=== PATIENT | female | born 1950 | race Caucasian/White ===

== ENCOUNTER 2016-12-08 14:21 | Emergency (ER) ==
[2016-12-08 14:27] VITALS: BP 136/80; TEMP 98.8; BMI 31.6
[2016-12-08] MEDS ORDERED: DUONEB NEB STA (14:30)
[2016-12-08] MEDS ORDERED: DECADRON 4 MG/ML SDV IM STA (14:32)
[2016-12-08] MEDS ORDERED: XOPENEX 1.25 MG NEB STA (14:32)
--- NOTE | 2016-12-08 15:03 | DI ---
EXAM: PA and lateral views of the chest HISTORY: Wheezing COMPARISON: Chest x-ray 08/22/2012 FINDINGS: The cardiomediastinal silhouette is normal. There is no pneumothorax or pleural effusion . There is no consolidation, nodule or mass. 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 IMPRESSION: No acute cardiopulmonary process or consolidation.
--- NOTE | 2016-12-08 15:04 | ED.PDOC ---
General ED Provider: Dr. EVANGELINA SHIN-ER Chief Complaint: Cough Stated Complaint: noted cough and wheezing --has been out of her symbicort for amonth Time Seen by Physician: 14:25 Mode of Arrival: Walk-In Information Source: Patient Exam Limitations: No limitations Primary Care Provider: EVANGELINA SHIN Nursing and Triage Documentation Reviewed and Agree: Yes Respiratory Complaint Exam - Respiratory Complaint/Exam Onset/Duration: 2 ays Symptoms Are: Still present Timing: Intermittent Initial Severity: Mild Current Severity: Moderate Location: Chest Character: Reports: Non-productive cough, Dry cough, Bronchospastic cough Aggravating: Reports: URI Alleviating: Reports: Bronchodilators Associated Signs and Symptoms: Reports: Dyspnea, Wheezing, URI. Denies: Rapid breathing, Fever, Chills, Chest pain, Pleuritic chest pain, Hemoptysis, Dizziness, Calf pain, Calf swelling, Edema, Nasal congestion, Hoarseness, Sinus discomfort, Vomiting, Sore throat, Weight loss, Decreased oral intake, Increased thirst, Increased appetite, Increased urination Related History: Reports: Similar episode History of Healthcare-Acquired Pneumonia: No Related Surgical History: Reports: None Pulmonary Embolism Risk Factors: None Cardiac Risk Factors: Reports: Hypertension Pseudomonas Risk Factors: Reports: Chronic Lung Disease Tuberculosis Risk Factors: Reports: None Status Asthmaticus Risk Factors: Reports: None Home Oxygen Use: No Recent Stress Test: No Recent Echo/LV Function: No Current Antibiotic Use: No Current Asthma Medication Use: No Respiratory Distress: Mild Inadequate Respiratory Effort: No Dysphagia Present: No Stridor Present: No JVD Present: No Accessory Muscle Use: No Retractions: Not Present Diminished Breath Sounds: No Prolonged Respiration: Expiratory phase Sinus Tenderness: None Grunting Respirations: No Kussmaul Respirations: No Differential Diagnoses: Asthma, Bronchitis Review of Systems - Review Of Systems Constitutional: Reports: No symptoms Eyes: Reports: No symptoms Ears, Nose, Mouth, Throat: Reports: No symptoms Respiratory: Reports: Cough, Short of air, Wheezing Cardiac: Reports: No symptoms GI: Reports: No symptoms : Reports: No symptoms Musculoskeletal: Reports: No symptoms Skin: Reports: No symptoms Neurological: Reports: No symptoms Endocrine: Reports: No symptoms Hematologic/Lymphatic: Reports: No symptoms All Other Systems: Reviewed and Negative Past Medical History - Past Medical History Endocrine: Reports: Unknown Cardiovascular: Reports: Unknown Respiratory: Reports: Unknown Hematological: Reports: Unknown Gastrointestinal: Reports: Unknown Genitourinary: Reports: Unknown Neuro/Psych: Reports: Unknown Musculoskeletal: Reports: Unknown Cancer: Reports: Unknown Last Menstrual Period: none - Surgical History General Surgical History: Reports: Unknown - Family History Family History: Reports: Unknown - Social History Smoking Status: Former smoker Hx Substance Use: No Alcohol Screening: None Lives: With family Physical Exam - Physical Exam Appearance: Well-appearing, No pain distress, Well-nourished Eyes: LULU, EOMI, Conjunctiva clear ENT: Ears normal, Nose normal, Oropharynx normal Neck: Supple Respiratory: Wheezes Cardiovascular: RRR GI/: Soft, Nontender, No masses, Bowel sounds normal, No Organomegaly Musculoskeletal: Normal strength Skin: Warm, Dry, Normal color Neurological: Sensation intact, Motor intact, Reflexes intact, Cranial nerves intact, Alert, Oriented Psychiatric: Affect appropriate, Mood appropriate Interpretation - Radiology Interpretation Radiology Interpretation By: Radiologist Radiology Results: Negative Exam Interpreted: CXR Re-Evaluation - Re-Evaluation Time of Re-Evaluation: 15:15 Status: Improved Vital Signs Stable: No Pain Level: 0 Appearance: NAD Lungs: Other (only occ exp wheezing--much better) Skin: Warm and Dry Neuro: Alert and Oriented X3 CV: RRR Critical Care Note - Critical Care Note Total Time (mins): 0 Course - Course Orders, Labs, Meds: Orders Category Date Time Status NEBULIZER TREATMENT Stat CARDIO 12/08/16 14:32 Completed Dexamethasone 4 mg/ml Inj [Decadron 4 mg/ml Sdv] MEDS 12/08/16 14:32 Discontinued 8 mg IM ONCE STA Ipratropium/Albuterol Neb [Duoneb] MEDS 12/08/16 14:30 Discontinued 1 vial NEB ONCE STA Levalbuterol HCl [Xopenex 1.25 mg] MEDS 12/08/16 14:32 Discontinued 1 vial NEB ONCE STA CXR [CHEST, 2 VIEWS PA & LAT] Stat RADS 12/08/16 14:33 Completed Medications Discontinued Medications Generic Name Dose Route Start Last Admin Trade Name Freq PRN Reason Stop Dose Admin Albuterol/Ipratropium 1 vial 12/08/16 14:30 12/08/16 14:35 Duoneb NEB 12/08/16 14:31 1 vial ONCE STA Administration Dexamethasone Sodium Phosphate 8 mg 12/08/16 14:32 12/08/16 15:00 Decadron 4 Mg/Ml Sdv IM 12/08/16 14:33 8 mg ONCE STA Administration Levalbuterol HCl 1 vial 12/08/16 14:32 12/08/16 14:56 Xopenex 1.25 Mg NEB 12/08/16 14:33 1 vial ONCE STA Administration Vital Signs: Temp Pulse Resp BP Pulse Ox 12/08/16 14:21 98.8 F 96 H 24 136/80 92 L Departure - Departure Time of Disposition: 15:15 Disposition: HOME SELF-CARE Discharge Problem: Asthmatic bronchitis Qualifiers: Asthma severity: moderate persistent Asthma complication type: with acute exacerbation Qualifier Code: (J45.41) Moderate persistent asthma with (acute) exacerbation Instructions: Asthma (ED) Condition: Good Pt referred to PMD for follow-up: Yes Additional Instructions: start symbicort inhaler 160/4.5 bid (come by office tody and get samples)--- albuterol inhaler 2 pufs qid--prednisone 30mg x 3 dys then 20mg x 3 days then 10mg xs 3 dasyd ---call me if any problems Allergies/Adverse Reactions: Allergies Penicillins Adverse Reaction (Verified 12/08/16 14:32) Home Medications: Ambulatory Orders Aspirin [Aspirin EC] 81 mg PO DAILY 05/05/14 Fish Oil/Dha/Epa [Fish Oil 1,200 mg Fish Oil] 1 cap PO DAILY 05/05/14 Gabapentin 600 mg PO DAILY 05/05/14 Hydrochlorothiazide 12.5 mg PO DAILY 05/05/14 Irbesartan [Avapro] 150 mg PO DAILY 05/05/14 Multivitamin 1 cap PO DAILY 05/05/14 Esomeprazole Magnesium [Nexium] 40 mg PO DAILY 12/08/16 Metoprolol Tartrate [Lopressor] 25 mg PO BID 12/08/16 Potassium Gluconate [Potassium] 595 mg PO DAILY 12/08/16 Disposition Discussed With: Patient, Family
== END 2016-12-08 15:29 | disposition home or self-care (01) ==
LOC: ED 14:21
DX: J45.41 Moderate persistent asthma with (acute) exacerbation (principal)
CPT/HCPCS: 94640; 96372; 99283

== ENCOUNTER 2017-10-09 09:23 | Day surgery (SDC) ==
[2017-10-09] MEDS ORDERED: LIDOCAINE 1% 20 ML MDV ID STA (10:20)
[2017-10-09 10:35] VITALS: TEMP 98.2
[2017-10-09] MEDS ORDERED: ALBUTEROL 0.083% NEB NEB STA (11:06)
[2017-10-09] MEDS ORDERED: VERSED ONE (11:55)
[2017-10-09] MEDS ORDERED: LIDOCAINE HCL 2% LUER-JET ONE (11:55)
[2017-10-09] MEDS ORDERED: DIPRIVAN 20 ML VIAL IVP ONE (11:55)
[2017-10-09 15:23] VITALS: BP 114/70
--- NOTE | 2017-10-09 15:45 | DI ---
EXAM: Single PA view of the chest and five views of the left ribs HISTORY: Cough with left rib pain. COMPARISON: Chest x-ray 12/08/2016 and multiple priors FINDINGS: The cardiomediastinal silhouette is unchanged. The lungs are clear. Multiple views of the left ribs demonstrate no displaced fracture or cortical irregularity. IMPRESSION: No acute abnormality of the left ribs.
--- NOTE | 2017-10-10 10:57 | OP ---
PROCEDURE: EGD (ESOPHAGOGASTRODUODENOSCOPY) WITH BIOPSY AND ALCARAZ DILATATION. ENDOSCOPIST: Joann PARNELL M.D. INDICATION: DYSPHAGIA. INSTRUMENT: GIF[facility]-190. MEDICATION: PER ANESTHESIA. PROCEDURE: The patient was positioned for endoscopy. The oropharynx was sprayed with Cetacaine spray and the endoscope was advanced through the bite block into the esophagus and from there advanced to the duodenum. The duodenum was grossly normal. The pylorus was patent. The antrum revealed gastritis and we took biopsies for helicobacter. Hiatal hernia is seen on retroflex exam. The Z-line was at 32 cm. No definite stricture noted. A 48 [place] Alcaraz was passed without difficulty. PLAN: 1. Repeat as needed. cc: Dr. Luis F DAMON
== END 2017-10-09 13:10 | disposition home or self-care (01) ==
LOC: SURG 09:23 → RAD 13:10
PROVIDERS: ATTEND Internal Medicine Gastroenterology
DX: R13.10 Dysphagia, unspecified (principal); K29.70 Gastritis, unspecified, without bleeding; K44.9 Diaphragmatic hernia without obstruction or gangrene
CPT/HCPCS: 87339; 94640

== ENCOUNTER 2017-10-30 08:44 | Day surgery (SDC) ==
[2017-10-30] MEDS ORDERED: LIDOCAINE 1% 20 ML MDV ID STA (09:01)
[2017-10-30] MEDS ORDERED: VERSED ONE (09:45)
[2017-10-30] MEDS ORDERED: DIPRIVAN 20 ML VIAL IVP ONE (09:45)
--- NOTE | 2017-10-31 10:40 | OP ---
PROCEDURE: COLONOSCOPY TO THE CECUM. ENDOSCOPIST: Joann PARNELL M.D. INDICATION: HISTORY OF POLYPS. [facility]: [facility] MEDICATION: PER ANESTHESIA. PROCEDURE: The patient was positioned for colonoscopy. The digital rectal exam was negative. The colonoscope was inserted through the anus and advanced to the cecum. The cecum was identified using the ileocecal valve and the appendiceal orifice as landmarks. [place] Bowel Prep Score 2 + 2 + 3 = 7. The scope was slowly withdrawn through an adequately prepped colon. No evidence for polyp on this exam. Diverticulosis scattered throughout the colon. The retroflex exam was otherwise negative. She tolerated the procedure without immediate complication. Withdrawal time 6 minutes, 51 seconds. PLAN: 1. Suggest repeat colonoscopy in 5 years. CC: DR. ALEIDA DAMON
[2017-11-06 13:03] VITALS: BP 136/76; TEMP 98.3
== END 2017-10-30 10:50 | disposition home or self-care (01) ==
LOC: SURG 08:44
PROVIDERS: ATTEND Internal Medicine Gastroenterology
DX: Z09 Encounter for follow-up examination after completed treatment for conditions other than malignant neoplasm (principal); Z86.010 Personal history of colon polyps; K57.30 Diverticulosis of large intestine without perforation or abscess without bleeding

== ENCOUNTER 2018-05-31 12:44 | Outpatient (CLI) ==
--- NOTE | 2018-06-01 10:21 | MAMMO ---
EXAM: Screening mammogram with tomosynthesis HISTORY: Screening COMPARISON: 03/14/2016 FINDINGS: MLO and CC views of the right and left breast were performed. Tomosynthesis was performed . Computer aided detection utilized. The breast tissue is almost entirely fatty replaced. Benign bi lateral calcifications. There is no evidence for mass, asymmetry, distortion, or suspicious calcific ations in either breast. IMPRESSION: 1. No mammographic evidence of malignancy in the right or left breast. 2. Annual screening mammogram is recommended in one year. BIRADS category 2, benign
== END 2018-05-31 12:45 | disposition home or self-care (01) ==
LOC: RAD 12:44
PROVIDERS: ATTEND Family Medicine
DX: Z12.31 Encounter for screening mammogram for malignant neoplasm of breast (principal)
CPT/HCPCS: 77067

== ENCOUNTER 2022-06-02 07:51 | Inpatient (IN) ==
--- NOTE | 2022-06-02 07:55 | ED.PDOC ---
General ED Provider: Dr. KINSEY KYLE MD Chief Complaint: Shortness of Air Stated Complaint: Patient has a history of COPD and does use oxygen at home. She developed symptoms of a URI one week ago. Patient presents now with increasing dyspnea for 2 days. She has a nonproductive cough and dyspnea at rest. Denies fever, chills, chest pain, orthopnea, PND, peripheral edema, palpitations, syncope. Time Seen by Provider: 06/02/22 07:53 Primary Care Provider: EVANGELINA SHIN Nursing and Triage Documentation Reviewed and Agree: Yes Does patient meet sepsis criteria?: No System Inflammatory Response Syndrome: Not Applicable Sepsis Protocol: For patient's 13 years and over: Temp is 96.8 and below OR 101 and greater Pulse >90 BPM Resp >20/minute Acutely Altered Mental Status Are patient's symptoms suggestive of a new infection, such as: -Pneumonia -Skin, Soft Tissue -Endocarditis -UTI -Bone, Joint Infection -Implantable Device -Acute Abdominal Infection -Wound Infection -Meningitis -Blood Stream Catheter Infection -Unknown Respiratory Complaint Exam Shortness of Air Complaint/Exam Onset/Duration: two day history of progressive dyspnea Symptoms Are: Still present Timing: Constant Initial Severity: Mild Current Severity: Moderate Character: Reports Dyspnea at rest and Dyspnea on exertion Aggravating: Reports Movement Alleviating: Reports None Associated Signs and Symptoms: Reports Cough, Wheezing, Rapid breathing and Labored breathing Related History: Reports Similar episode History of Healthcare-Acquired Pneumonia: No Pulmonary Embolism Risk Factors: Reports None Cardiac Risk Factors: Reports Hypertension Pseudomonas Risk Factors: Reports None Tuberculosis Risk Factors: Reports None Home Oxygen Use: Yes Recent Stress Test: No Recent Echo/LV Function: No Respiratory Distress: Moderate Stridor Present: No Tracheal Deviation: No Subcutaneous Emphysema: No Accessory Muscle Use: Yes Retractions: Not Present Diminished Breath Sounds: Yes Prolonged Expiratory Phase: Yes Unable to Speak Full Sentences: Yes Fatigue: No Leg Swelling: No Lilly's Sign Present: No Grunting Respirations: No Kussmaul Respirations: No Review of Systems Review Of Systems Constitutional: Reports Other (fatigue) Eyes: Reports No symptoms Ears, Nose, Mouth, Throat: Reports Nose discharge Respiratory: Reports Cough, Short of air and Wheezing Cardiac: Reports No symptoms GI: Reports No symptoms : Reports No symptoms Musculoskeletal: Reports No symptoms Skin: Reports No symptoms Neurological: Reports No symptoms Endocrine: Reports No symptoms Hematologic/Lymphatic: Reports No symptoms All Other Systems: Reviewed and Negative Physical Exam Physical Exam Appearance: Reports Ill-appearing, No pain distress, Obese and Other (Elderly female who is in moderate respiratory distress. She is tachypneic and using some accessory respiratory muscles.) Ill-appearing: Moderate Pain Distress: None Eyes: Reports LULU and EOMI ENT: Reports Oropharynx normal and Rhinorrhea Neck: Supple (no JVD) Respiratory: Reports Airway patent, Breath sounds equal, Breath sounds diminished (breath sounds equal) and Wheezes (bilateral expiratory wheezes, poor air exchange) Cardiovascular: Reports RRR, No rub and No murmur GI/: Reports Soft, Nontender, No masses and Bowel sounds normal Musculoskeletal: Reports Normal strength and No edema Skin: Reports Warm, Dry and Normal color Neurological: Reports Motor intact, Alert and Oriented Psychiatric: Reports Affect appropriate, Mood appropriate and Anxious Interpretation Radiology Interpretation Radiology Interpretation By: Radiologist Exam Interpreted: Portable CXR (no acute cardiopulmonary findings) Critical Care Note Critical Care Note Total Critical Care Time (mins): 0 Course Course Hematology/Chemistry: 06/02/22 08:14 06/02/22 08:14 Orders, Labs, Meds: Lab Review 06/02/22 06/02/22 06/02/22 08:08 08:08 08:14 WBC 8.25 RBC 4.49 Hgb 13.9 Hct 43.3 MCV 96.4 MCH 31.0 MCHC 32.1 RDW Coeff of Jacobo 12.7 Plt Count 275 Immature Gran % (Auto) 0.1 Neut % (Auto) 44.7 Lymph % (Auto) 18.3 [place] % (Auto) 10.5 H Eos % (Auto) 25.1 H Baso % (Auto) 1.3 Neut # (Auto) 3.7 Lymph # (Auto) 1.5 [place] # (Auto) 0.9 Eos # (Auto) 2.1 H Baso # (Auto) 0.1 Immature Gran # (Auto) 0.0 Sodium Potassium Chloride Carbon Dioxide Anion Gap BUN Creatinine Estimated GFR (MDRD) BUN/Creatinine Ratio Glucose Calcium Total Bilirubin AST ALT Alkaline Phosphatase Total Protein Albumin Globulin Albumin/Globulin Ratio Influ A Molecular Assay Negative by naat Influ B Molecular Assay Negative by naat RSV Antigen Negative by naat SARS CoV-2 RNA Rapid SAV Negative 06/02/22 08:14 WBC RBC Hgb Hct MCV MCH MCHC RDW Coeff of Jacobo Plt Count Immature Gran % (Auto) Neut % (Auto) Lymph % (Auto) [place] % (Auto) Eos % (Auto) Baso % (Auto) Neut # (Auto) Lymph # (Auto) [place] # (Auto) Eos # (Auto) Baso # (Auto) Immature Gran # (Auto) Sodium 141.1 Potassium 4.59 Chloride 102.1 Carbon Dioxide 33.1 H Anion Gap 10.49 BUN 12.1 Creatinine 0.66 Estimated GFR (MDRD) 88.00 BUN/Creatinine Ratio 18.33 Glucose 103.1 Calcium 9.92 Total Bilirubin 0.35 AST 33.1 ALT 17.3 Alkaline Phosphatase 86.3 Total Protein 7.68 Albumin 4.51 Globulin 3.17 Albumin/Globulin Ratio 1.42 Influ A Molecular Assay Influ B Molecular Assay RSV Antigen SARS CoV-2 RNA Rapid SAV Orders Category Date Time Status NEBULIZER TREATMENT Stat CARDIO 06/02/22 08:00 Completed NEBULIZER TREATMENT Stat CARDIO 06/02/22 08:50 Completed [place] [ED IV/MEDIPORT/POWERPORT] .ONCE EMERGENCY 06/02/22 08:00 Active CBC W/ AUTO DIFF Stat LAB 06/02/22 08:14 Completed CMP [COMPREHENSIVE METABOLIC PANEL] Stat LAB 06/02/22 08:14 Completed COVID [SARS COV-2 RNA RAPID SAV] Stat LAB 06/02/22 08:08 Completed FLU A & B MOLECULAR [FLU A/B MOLECULAR] Stat LAB 06/02/22 08:08 Completed RSV Stat LAB 06/02/22 08:08 Completed 0.9 % Sodium Chloride [Saline Flush] MEDS 06/02/22 08:00 Active 1 syr IVF PRN PRN Ipratropium/Albuterol Neb [Duoneb] MEDS 06/02/22 08:00 Discontinued 3 ml NEB ONCE STA Ipratropium/Albuterol Neb [Duoneb] MEDS 06/02/22 08:50 Discontinued 3 ml NEB ONCE STA Methylprednisolone Sod Succ/Pf [Solu-Medrol 125 mg] MEDS 06/02/22 08:00 Discontinued 125 mg IVP ONCE STA CXR [CHEST, 1V AP ONLY] Stat RADS 06/02/22 08:00 Completed Medications Generic Name Dose Route Start Last Admin Trade Name Freq PRN Reason Stop Dose Admin Sodium Chloride 1 syr 06/02/22 08:00 06/02/22 08:12 0.9% Sodium Chloride 10 Ml Disp.Syrin IVF 1 syr PRN PRN Administration To flush IV Discontinued Medications Generic Name Dose Route Start Last Admin Trade Name Gonzalo PRN Reason Stop Dose Admin Albuterol/Ipratropium 3 ml 06/02/22 08:00 06/02/22 08:16 Ipratropium/Albuterol Vial.[place] [facility] 06/02/22 08:01 3 ml ONCE STA Administration Albuterol/Ipratropium 3 ml 06/02/22 08:50 06/02/22 09:15 Ipratropium/Albuterol Vial.[facility] [facility] 06/02/22 08:51 3 ml ONCE STA Administration Methylprednisolone Sodium Succinate 125 mg 06/02/22 08:00 06/02/22 08:11 Methylprednisolone Sod Succ/Pf 125 Mg/2 Ml Vial IVP 06/02/22 08:01 125 mg ONCE STA Administration Vital Signs: Temp Pulse Resp BP Pulse Ox 06/02/22 09:05 95 06/02/22 07:52 98.1 F 69 19 139/82 86 L Discharge Plan Discharge Patient Disposition: ADMITTED INPATIENT Discharge Problem: Acute exacerbation of chronic obstructive pulmonary disease, Viral upper respir atory tract infection with cough Instructions: COPD (Chronic Obstructive Pulmonary Disease) (ED), Wheezing (ED) Prescriptions: No Action gabapentin 600 MG tablet 600 mg PO DAILY hydrochlorothiazide 12.5 MG capsule 12.5 mg PO DAILY irbesartan [Avapro] 150 MG tablet 150 mg PO DAILY multivitamin 1 CAP capsule 1 cap PO DAILY esomeprazole magnesium [Nexium] 40 MG capsule,delayed release(DR/EC) 40 mg PO DAILY PRN (Reason: INDIGESTION) metoprolol tartrate 25 MG tablet 25 mg PO BID levothyroxine 50 MCG tablet 1 tab PO DAILY hydrocodone-acetaminophen 1 EACH tablet 1 tab PO DAILY PRN (Reason: PAIN) budesonide-formoterol [Symbicort] 1 PUFF HFA aerosol inhaler 1 mg INH DAILY PRN (Reason: Asthma) potassium gluconate 99 MG tablet 2 tab PO BEDTIME cholecalciferol (vitamin D3) [Vitamin D3] 2,000 UNIT capsule 2,000 unit PO DAILY calcium-vitamin D3-vitamin K [Citracal-D3 Soft Chew] 1 EACH tablet,chewable 1 tab PO DAILY Did you review [place] [employer] TECHNICIAN?: Not Applicable ED Provider: KINSEY KYLE Condition: Fair Physician Progress Note: []
[2022-06-02] MEDS ORDERED: SOLU-MEDROL 125 MG IVP STA (08:00)
[2022-06-02] MEDS ORDERED: DUONEB NEB STA ×2 (08:00→08:50)
[2022-06-02 08:24] LABS: BASOPHILS # (AUTO) 0.1 K/uL (0-0.2); BASOPHILS % (AUTO) 1.3 % (0.0-3.0); EOSINOPHILS # (AUTO) 2.1 K/ul (0.0-0.7); HEMATOCRIT 43.3 % (37.0-47.0); HEMOGLOBIN 13.9 g/dl (12.0-16.0); IMMATURE GRANULOCYTE % (AUTO) 0.1 % (0.0-5.0); LYMPHOCYTES # (AUTO) 1.5 K/uL (0.60-3.4); LYMPHOCYTES % (AUTO) 18.3 (10.0-50.0); MEAN CORPUSCULAR HGB CONC 32.1 (31.8-35.4); MEAN CORPUSCULAR VOLUME 96.4 fl (81.0-99.0); MONOCYTES # (AUTO) 0.9 K/uL (0.4-2.0); MONOCYTES % (AUTO) 10.5 (0-10); NEUTROPHILS # (AUTO) 3.7 K/ul (2.0-6.9); NEUTROPHILS % (AUTO) 44.7 % (42.2-75.2); PLATELET COUNT 275 10^3/uL (140-440); RDW COEFFICIENT OF VARIATION 12.7 % (11.6-14.8); RED BLOOD COUNT 4.49 10^6/ul (4.20-5.40); WHITE BLOOD COUNT 8.25 K/ul (4.6-10.2)
[2022-06-02 08:44] LABS: EOSINOPHILS % (AUTO) 25.1 % (0.0-7.0)
[2022-06-02 08:50] LABS: RSV MOLECULAR NEGATIVE BY NAAT (NEGATIVE)
[2022-06-02 08:51] LABS: MOLECULAR FLU A NEGATIVE BY NAAT (NEGATIVE); MOLECULAR FLU B NEGATIVE BY NAAT (NEGATIVE)
[2022-06-02 08:52] LABS: ALANINE AMINOTRANSFERASE 17.3 U/L (0-35); ALBUMIN 4.51 g/dL (3.5-5.0); ALKALINE PHOSPHATASE 86.3 U/L (53-141); ASPARTATE AMINO TRANSFERASE 33.1 U/L (14-36); BILIRUBIN,TOTAL 0.35 mg/dL (0.2-1.3); BLOOD UREA NITROGEN 12.1 mg/dL (7-17); CALCIUM 9.92 mg/dL (8.4-10.2); CARBON DIOXIDE 33.1 mmol/L (22-30.0); CHLORIDE 102.1 mmol/L (98-107); CREATININE 0.66 mg/dL (0.60-1.30); GLUCOSE 103.1 mg/dL (74-106); POTASSIUM 4.59 mmol/L (3.5-5.1); SODIUM 141.1 mmol/L (134.5-145); TOTAL PROTEIN 7.68 g/dL (6.3-8.2)
--- NOTE | 2022-06-02 09:23 | DI ---
EXAM: Chest one-view AP upright HISTORY: Difficulty breathing COMPARISON: 10/09/2018 FINDINGS: Cardiac silhouette and mediastinum are normal. There is no pulmonary infiltrate.There is no pleural effusion. Skeletal structures unremarkable IMPRESSION: Negative chest. No active cardiopulmonary disease
[2022-06-02] MEDS ORDERED: SYMBICORT 80-4.5 MCG INHALER IH PRN (10:25)
[2022-06-02] MEDS ORDERED: NORCO 7.5-325 MG/15 ML PO PRN (10:25)
[2022-06-02 11:08] VITALS: BMI 30.4
[2022-06-02] MEDS ORDERED: NORCO 7.5-325 PO PRN (11:57)
[2022-06-02] MEDS ORDERED: NON-FORMULARY MEDICATION (Esomeprazole Magnesium [Nexium] 40 MG capsule,delayed release(DR PO PRN (11:59)
[2022-06-02] MEDS: DUONEB NEB SCH ×3 (12:46→23:11)
--- NOTE | 2022-06-02 13:01 | PCM ---
Chief Complaint Chief Complaint: shortness of breath History of Present Illness History of Present Illness: Patient has a history of COPD and uses home oxygen on a PRN basis. She developed URI symptoms one week ago. Patient presents now with a 2 day history of pro gressive dyspnea. She has a nonproductive cough and wheezing. Denies fever, chills, body aches, chest pain, palpitations, syncope, peripheral edema, orthopnea, PND. Review of Systems Constitutional: Reports No symptoms Eyes: Reports No symptoms Ears: Reports No symptoms Nose: Reports Congestion Throat: Reports No symptoms Mouth: Reports No symptoms Respiratory: Reports Cough, Shortness of air and Wheeze Cardiovascular: Reports No symptoms Gastrointestinal: Reports No symptoms Genitourinary: Reports No symptoms Neurological: Reports No symptoms Musculoskeletal: Reports No symptoms Skin: Reports No symptoms Immunology: Reports No symptoms Hematology: Reports No symptoms Endocrine: Reports No symptoms Psychiatric: Reports No symptoms Habits: Reports Tobacco use Allergies Allergies Allergy/AdvReac Type Severity Reaction Status Date / Time Penicillins AdvReac Verified 06/02/22 08:01 [facility] Medical History (Updated 06/02/22 @ 11:24 by LISANDRO MORAN RN) Arthritis COPD (chronic obstructive pulmonary disease) Osteoporosis Thoracic aortic aneurysm Family History (Updated 06/02/22 @ 11:13 by LISANDRO MORAN RN) Mother Suicide FATHER Prostate cancer SISTER CHF (congestive heart failure) Medications Medications: Medications Generic Name Dose Route Start Last Admin Trade Name Freq PRN Reason Stop Dose Admin Hydrocodone Bitart/Acetaminophen 1 tab 06/02/22 11:57 Hydrocodone Bit/Acetaminophen 7.5/325 Mg Tablet PO DAILY PRN Joint Pain Albuterol/Ipratropium 3 ml 06/02/22 12:00 06/02/22 12:46 Ipratropium/Albuterol Vial.Neb NEB 3 ml RTQ6H DEYVI Administration Budesonide/Formoterol Fumarate 2 puff 06/02/22 21:00 Budesonide/Formoterol Fumarate 80/4.5 Mcg Hfa.Aer.Ad IH BID DEYVI Cholecalciferol 2,000 unit 06/03/22 09:00 Cholecalciferol (Vitamin D3) 1,000 Unit (25 Mcg) Tablet PO DAILY DEYVI Docusate Sodium 300 mg 06/03/22 09:00 Docusate Sodium 100 Mg Capsule PO DAILY DEYVI Gabapentin 600 mg 06/02/22 21:00 Gabapentin 300 Mg Capsule PO BEDTIME [facility] Irbesartan 150 mg 06/03/22 09:00 Irbesartan 150 Mg Tablet PO DAILY [facility] Levothyroxine Sodium 50 mcg 06/03/22 09:00 Levothyroxine Sodium 50 Mcg Tablet PO QDAC [facility] Methylprednisolone Sodium Succinate 125 mg 06/02/22 13:00 Methylprednisolone Sod Succ/Pf 125 Mg/2 Ml Vial IVP Q8HR [facility] Metoprolol Tartrate 25 mg 06/02/22 21:00 Metoprolol Tartrate 25 Mg Tablet PO BID [facility] Multivitamins 1 tab 06/03/22 09:00 Multivitamin 1 Tab PO DAILY [facility] Non-Formulary Medication 2 tab 06/02/22 21:00 Potassium Gluconate PO BID [facility] Pantoprazole Sodium 40 mg 06/03/22 06:30 Pantoprazole Sodium 40 Mg Tablet.Dr PO QDAC [facility] Sodium Chloride 1 syr 06/02/22 08:00 06/02/22 08:12 0.9% Sodium Chloride 10 Ml Disp.Syrin IVF 1 syr PRN PRN Administration To flush IV Tiotropium [place] 1 cap 06/03/22 09:00 Tiotropium [place] 18 Mcg Cap.W.Dev IH DAILY [facility] Body Composition Height: 5 ft 5 in Weight: 83.007 kg Body Mass Index (BMI): 30.4 Vital Signs Temperature: 97.8 F Pulse Rate: 76 Respiratory Rate: 18 Blood Pressure: 139/82 O2 Sat by Pulse Oximetry: 90 Physical Examination Appearance: Reports Ill-appearing, No pain distress, Obese and Other (Patient is elderly lady who is in moderate to marked respiratory distress. She has audible wheezing. Patient tachypneic and using accessory respiratory muscles.) Ill-appearing: Moderate Pain Distress: None Eyes: Reports LULU and EOMI ENT: Reports Nose normal and Oropharynx normal Neck: Supple Respiratory: Reports Airway patent, Breath sounds equal, Breath sounds diminished and Wheezes (bilateral expiratory wheezes, poor air exchange) Cardiovascular: Reports RRR, No rub and No murmur GI/: Reports Soft, Nontender, No masses and Bowel sounds normal Musculoskeletal: Reports Normal strength, ROM intact and No edema Skin: Reports Warm, Dry and Normal color Neurological: Reports Motor intact, Alert and Oriented Psychiatric: Reports Affect appropriate, Mood appropriate and Anxious Lab/Tests/Diagnostic Imaging Lab/Tests/Diagnostic Imaging: Lab Review 06/02/22 06/02/22 06/02/22 08:08 08:08 08:14 WBC 8.25 RBC 4.49 Hgb 13.9 Hct 43.3 MCV 96.4 MCH 31.0 MCHC 32.1 RDW Coeff of Jacobo 12.7 Plt Count 275 Immature Gran % (Auto) 0.1 Neut % (Auto) 44.7 Lymph % (Auto) 18.3 [place] % (Auto) 10.5 H Eos % (Auto) 25.1 H Baso % (Auto) 1.3 Neut # (Auto) 3.7 Lymph # (Auto) 1.5 [place] # (Auto) 0.9 Eos # (Auto) 2.1 H Baso # (Auto) 0.1 Immature Gran # (Auto) 0.0 Sodium Potassium Chloride Carbon Dioxide Anion Gap BUN Creatinine Estimated GFR (MDRD) BUN/Creatinine Ratio Glucose Calcium Total Bilirubin AST ALT Alkaline Phosphatase Total Protein Albumin Globulin Albumin/Globulin Ratio Influ A Molecular Assay Negative by naat Influ B Molecular Assay Negative by naat RSV Antigen Negative by naat SARS CoV-2 RNA Rapid SAV Negative 06/02/22 08:14 WBC RBC Hgb Hct MCV MCH MCHC RDW Coeff of Jacobo Plt Count Immature Gran % (Auto) Neut % (Auto) Lymph % (Auto) [place] % (Auto) Eos % (Auto) Baso % (Auto) Neut # (Auto) Lymph # (Auto) [place] # (Auto) Eos # (Auto) Baso # (Auto) Immature Gran # (Auto) Sodium 141.1 Potassium 4.59 Chloride 102.1 Carbon Dioxide 33.1 H Anion Gap 10.49 BUN 12.1 Creatinine 0.66 Estimated GFR (MDRD) 88.00 BUN/Creatinine Ratio 18.33 Glucose 103.1 Calcium 9.92 Total Bilirubin 0.35 AST 33.1 ALT 17.3 Alkaline Phosphatase 86.3 Total Protein 7.68 Albumin 4.51 Globulin 3.17 Albumin/Globulin Ratio 1.42 Influ A Molecular Assay Influ B Molecular Assay RSV Antigen SARS CoV-2 RNA Rapid SAV Orders Category Date Time Status ADMIT PATIENT INPATIENT .TO [facility] (NON-MONITORED ADMISSION 06/02/22 10:19 Active BED) NEBULIZER TREATMENT Routine CARDIO 06/02/22 10:24 Active NEBULIZER TREATMENT Stat CARDIO 06/02/22 08:00 Completed NEBULIZER TREATMENT Stat CARDIO 06/02/22 08:50 Completed OXYGEN Routine CARDIO 06/02/22 10:20 Active ACTIVITY .Up ad [place]ár[place] CARE 06/02/22 10:19 Completed INTAKE & OUTPUT Q8HR CARE 06/02/22 10:19 Active INTAKE & OUTPUT Q8HR CARE 06/02/22 10:21 Completed IP: INSERT SALINE LOCK ONCE CARE 06/02/22 10:19 Active VITAL SIGNS Q8HR CARE 06/02/22 10:19 Active VITAL SIGNS Q8HR CARE 06/02/22 10:21 Completed REGULAR DIET DIETARY 06/02/22 Breakfast Ordered Saline Lock [ED IV/MEDIPORT/POWERPORT] .ONCE EMERGENCY 06/02/22 08:00 Active CBC W/ AUTO DIFF DAILY@0600 LAB 06/03/22 06:00 Ordered CBC W/ AUTO DIFF DAILY@0600 LAB 06/04/22 06:00 Ordered CBC W/ AUTO DIFF Stat LAB 06/02/22 08:14 Completed CMP [COMPREHENSIVE METABOLIC PANEL] Stat LAB 06/02/22 08:14 Completed COMPREHENSIVE METABOLIC PANEL DAILY@0600 LAB 06/03/22 06:00 Ordered COMPREHENSIVE METABOLIC PANEL DAILY@0600 LAB 06/04/22 06:00 Ordered COVID [SARS COV-2 RNA RAPID SAV] Stat LAB 06/02/22 08:08 Completed FLU A & B MOLECULAR [FLU A/B MOLECULAR] Stat LAB 06/02/22 08:08 Completed RSV Stat LAB 06/02/22 08:08 Completed 0.9 % Sodium Chloride [Saline Flush] MEDS 06/02/22 08:00 Active 1 syr IVF PRN PRN Budesonide/Formoterol Fumarate [Symbicort 80-4.5 Mcg MEDS 06/02/22 10:25 Discontinued Inhaler] 1 puff IH PRN PRN Budesonide/Formoterol Fumarate [Symbicort 80-4.5 Mcg MEDS 06/02/22 21:00 Active Inhaler] 2 puff IH BID Cholecalciferol (Vitamin D3) [Vitamin D] MEDS 06/03/22 09:00 Active 2,000 unit PO DAILY Docusate Sodium [Colace] MEDS 06/03/22 09:00 Active 300 mg PO DAILY Gabapentin [Neurontin] MEDS 06/02/22 21:00 Active 600 mg PO BEDTIME Hydrocodone Bit/Acetaminophen [[place] 7.5-325] MEDS 06/02/22 11:57 Active 1 tab PO DAILY PRN Ipratropium/Albuterol Neb [Duoneb] MEDS 06/02/22 08:00 Discontinued 3 ml NEB ONCE STA Ipratropium/Albuterol Neb [Duoneb] MEDS 06/02/22 08:50 Discontinued 3 ml NEB ONCE STA Ipratropium/Albuterol Neb [Duoneb] MEDS 06/02/22 12:00 Active 3 ml NEB RTQ6H Irbesartan [Avapro] MEDS 06/03/22 09:00 Active 150 mg PO DAILY Levothyroxine Sodium [Synthroid] MEDS 06/03/22 09:00 Active 50 mcg PO QDAC Methylprednisolone Sod Succ/Pf [Solu-Medrol 125 mg] MEDS 06/02/22 08:00 Discontinued 125 mg IVP ONCE STA Methylprednisolone Sod Succ/Pf [Solu-Medrol 125 mg] MEDS 06/02/22 13:00 Active 125 mg IVP Q8HR Metoprolol Tartrate [Lopressor] MEDS 06/02/22 21:00 Active 25 mg PO BID Multivitamin [Multivitamin Tablet] MEDS 06/03/22 09:00 Active 1 tab PO DAILY Pantoprazole Sodium [Protonix] MEDS 06/03/22 06:30 Active 40 mg PO QDAC Tiotropium [place] [Spiriva] MEDS 06/03/22 09:00 Active 1 cap IH DAILY potassium gluconate MEDS 06/02/22 21:00 Active 2 tab PO BID RESUSCITATION STATUS Routine OTHERS 06/02/22 10:19 Ordered CXR [CHEST, 1V AP ONLY] Stat RADS 06/02/22 08:00 Completed Medications Generic Name Dose Route Start Last Admin Trade Name Freq PRN Reason Stop Dose Admin Hydrocodone Bitart/Acetaminophen 1 tab 06/02/22 11:57 Hydrocodone Bit/Acetaminophen 7.5/325 Mg Tablet PO DAILY PRN Joint Pain Albuterol/Ipratropium 3 ml 06/02/22 12:00 06/02/22 12:46 Ipratropium/Albuterol Vial.Neb NEB 3 ml RTQ6H DEYVI Administration Budesonide/Formoterol Fumarate 2 puff 06/02/22 21:00 Budesonide/Formoterol Fumarate 80/4.5 Mcg Hfa.Aer.Ad IH BID DEYVI Cholecalciferol 2,000 unit 06/03/22 09:00 Cholecalciferol (Vitamin D3) 1,000 Unit (25 Mcg) Tablet PO DAILY [facility] Docusate Sodium 300 mg 06/03/22 09:00 Docusate Sodium 100 Mg Capsule PO DAILY DEYVI Gabapentin 600 mg 06/02/22 21:00 Gabapentin 300 Mg Capsule PO BEDTIME DEYVI Irbesartan 150 mg 06/03/22 09:00 Irbesartan 150 Mg Tablet PO DAILY DEYVI Levothyroxine Sodium 50 mcg 06/03/22 09:00 Levothyroxine Sodium 50 Mcg Tablet PO QDAC DEYVI Methylprednisolone Sodium Succinate 125 mg 06/02/22 13:00 Methylprednisolone Sod Succ/Pf 125 Mg/2 Ml Vial IVP Q8HR [facility] Metoprolol Tartrate 25 mg 06/02/22 21:00 Metoprolol Tartrate 25 Mg Tablet PO BID [facility] Multivitamins 1 tab 06/03/22 09:00 Multivitamin 1 Tab PO DAILY [facility] Non-Formulary Medication 2 tab 06/02/22 21:00 Potassium Gluconate PO BID [facility] Pantoprazole Sodium 40 mg 06/03/22 06:30 Pantoprazole Sodium 40 Mg Tablet. PO QDAC [facility] Sodium Chloride 1 syr 06/02/22 08:00 06/02/22 08:12 0.9% Sodium Chloride 10 Ml Disp.Syrin IVF 1 syr PRN PRN Administration To flush IV Tiotropium [place] 1 cap 06/03/22 09:00 Tiotropium [place] 18 Mcg Cap.W.Dev IH DAILY [facility] Discontinued Medications Generic Name Dose Route Start Last Admin Trade Name Freq PRN Reason Stop Dose Admin Albuterol/Ipratropium 3 ml 06/02/22 08:00 06/02/22 08:16 Ipratropium/Albuterol Vial.Neb NEB 06/02/22 08:01 3 ml ONCE STA Administration Albuterol/Ipratropium 3 ml 06/02/22 08:50 06/02/22 09:15 Ipratropium/Albuterol Vial.Neb NEB 06/02/22 08:51 3 ml ONCE STA Administration Budesonide/Formoterol Fumarate 1 puff 06/02/22 10:25 Budesonide/Formoterol Fumarate 80/4.5 Mcg Hfa.Aer.Ad IH PRN PRN shortness of breath Methylprednisolone Sodium Succinate 125 mg 06/02/22 08:00 06/02/22 08:11 Methylprednisolone Sod Succ/Pf 125 Mg/2 Ml Vial IVP 06/02/22 08:01 125 mg ONCE STA Administration Assessment (1) Acute exacerbation of chronic obstructive pulmonary disease: Status: Acute Code(s): J44.1 - Chronic obstructive pulmonary disease with (acute) exacerbation SNOMED Code(s): 405411251 (2) Viral upper respiratory tract infection with cough: Status: Acute Code(s): J06.9 - Acute upper respiratory infection, unspecified SNOMED Code(s): 035962170 Plan Plan: Patient will receive IV steroids and neb treatments.
[2022-06-02] MEDS: SOLU-MEDROL 125 MG IVP SCH ×2 (13:49→20:16)
[2022-06-02] MEDS: POTASSIUM GLUCONATE 99 MG PO SCH (17:02)
[2022-06-02] MEDS: LOPRESSOR PO SCH (20:15)
[2022-06-02] MEDS: SYMBICORT 80-4.5 MCG INHALER IH SCH (20:15)
[2022-06-02] MEDS: NEURONTIN PO SCH (20:15)
[2022-06-02] MEDS ORDERED: TYLENOL PO PRN (20:24)
[2022-06-02] MEDS ORDERED: NON-FORMULARY MEDICATION (Tiotropium Bromide [Spiriva Respimat] 2.5 mcg/actuation Mist) IH SCH (21:00)
[2022-06-02] MEDS ORDERED: LOPRESSOR PO SCH (21:00)
[2022-06-03] MEDS: DUONEB NEB SCH ×4 (04:45→23:25)
[2022-06-03 04:59] LABS: BASOPHILS % (AUTO) 0.2 % (0.0-3.0); HEMATOCRIT 39.4 % (37.0-47.0); HEMOGLOBIN 12.6 g/dl (12.0-16.0); IMMATURE GRANULOCYTE # (AUTO) 0.1 (0.0-1.0); IMMATURE GRANULOCYTE % (AUTO) 0.6 % (0.0-5.0); LYMPHOCYTES % (AUTO) 5.6 (10.0-50.0); MEAN CORPUSCULAR HEMOGLOBIN 31.3 pg (27.0-31.0); MEAN CORPUSCULAR VOLUME 97.8 fl (81.0-99.0); MONOCYTES # (AUTO) 0.9 K/uL (0.4-2.0); MONOCYTES % (AUTO) 5.5 (0-10); NEUTROPHILS % (AUTO) 88.1 % (42.2-75.2); PLATELET COUNT 264 10^3/uL (140-440); RDW COEFFICIENT OF VARIATION 12.7 % (11.6-14.8); RED BLOOD COUNT 4.03 10^6/ul (4.20-5.40); WHITE BLOOD COUNT 17.03 K/ul (4.6-10.2)
[2022-06-03 05:08] LABS: ALANINE AMINOTRANSFERASE 16.8 U/L (0-35); ALBUMIN 4.09 g/dL (3.5-5.0); ALKALINE PHOSPHATASE 75.9 U/L (53-141); ASPARTATE AMINO TRANSFERASE 31.4 U/L (14-36); BILIRUBIN,TOTAL 0.26 mg/dL (0.2-1.3); BLOOD UREA NITROGEN 17.2 mg/dL (7-17); CALCIUM 9.79 mg/dL (8.4-10.2); CARBON DIOXIDE 30.5 mmol/L (22-30.0); CHLORIDE 104.2 mmol/L (98-107); CREATININE 0.58 mg/dL (0.60-1.30); GLUCOSE 148.7 mg/dL (74-106); POTASSIUM 4.02 mmol/L (3.5-5.1); SODIUM 138.2 mmol/L (134.5-145); TOTAL PROTEIN 6.88 g/dL (6.3-8.2)
[2022-06-03] MEDS: SOLU-MEDROL 125 MG IVP SCH ×3 (05:36→20:20)
[2022-06-03] MEDS: PROTONIX PO SCH (05:36)
[2022-06-03] MEDS: COLACE PO SCH (08:45)
[2022-06-03] MEDS: AVAPRO PO SCH (08:46)
[2022-06-03] MEDS: MULTIVITAMIN TABLET PO SCH (08:46)
[2022-06-03] MEDS: LOPRESSOR PO SCH ×2 (08:47→20:21)
[2022-06-03] MEDS: SYNTHROID PO SCH (08:47)
[2022-06-03] MEDS: VITAMIN D PO SCH (08:48)
[2022-06-03] MEDS: SYMBICORT 80-4.5 MCG INHALER IH SCH ×2 (08:49→20:21)
[2022-06-03] MEDS ORDERED: AVAPRO PO SCH (09:00)
[2022-06-03] MEDS ORDERED: NEURONTIN PO SCH (09:00)
[2022-06-03] MEDS ORDERED: CHOLECALCIFEROL 2000 UNIT PO SCH (09:00)
[2022-06-03] MEDS ORDERED: SPIRIVA IH SCH (09:00)
[2022-06-03] MEDS: ALBUTEROL 0.083% NEB NEB PRN ×2 (09:35→19:30)
[2022-06-03] MEDS: ROCEPHIN 1 GM/50 ML D5W 1 GM/50 ML BAG IV SCH (10:49)
[2022-06-03] MEDS: MUCINEX PO SCH ×2 (10:52→20:21)
[2022-06-03] MEDS: TESSALON PERLES PO SCH ×3 (10:52→20:21)
--- NOTE | 2022-06-03 13:25 | PCM.PROG ---
Date Seen by Provider: 06/03/22 Time Seen by Provider: 09:00 Subjective: CC - Shortness of breath and wheezing. Better than yesterday, cough is persistent. Objective: Vitals: T=97.1 F, P=94, R=20, MY=489/77, SPO2=93 HEENT: [WNL] Neck: [supple Lungs: [Rhonchi with wheezing.] CVS: [RRR without m] Abdomen: [soft] Extremities: [intact ] Neurological: [intact] Skin: [intact] Lab/Tests/Diagnostic Imaging: [See chart.] (1) Acute exacerbation of chronic obstructive pulmonary disease: Status: Acute Code(s): J44.1 - Chronic obstructive pulmonary disease with (acute) exacerbation SNOMED Code(s): 164005805 Assessment: Slow improvement on nebulizer treatments and IV steroids. Continues on oxygen as she is on at home. The patient would benefit with a home nebulizer and duoneb treatments every 4-6 hours as needed. (2) Viral upper respiratory tract infection with cough: Status: Acute Code(s): J06.9 - Acute upper respiratory infection, unspecified SNOMED Code(s): 556171445 Assessment: Viral vs bacterial respiratory infection. WBC increased, but may be due to steroids. Add rocephin in case there is underlying bacterial component. Plan: Continue O2 and neb tx. Taper steroids. Add abx. Recommend a home nebulizer machine with duoneb every 4-6 hours as needed.
[2022-06-03] MEDS: POTASSIUM GLUCONATE 99 MG PO SCH ×2 (15:09→18:24)
[2022-06-03] MEDS: NEURONTIN PO SCH (20:21)
[2022-06-04] MEDS: DUONEB NEB SCH ×4 (04:40→23:10)
[2022-06-04 04:41] LABS: BASOPHILS % (AUTO) 0.1 % (0.0-3.0); HEMATOCRIT 41.3 % (37.0-47.0); HEMOGLOBIN 12.7 g/dl (12.0-16.0); IMMATURE GRANULOCYTE # (AUTO) 0.2 (0.0-1.0); IMMATURE GRANULOCYTE % (AUTO) 0.9 % (0.0-5.0); LYMPHOCYTES # (AUTO) 1.2 K/uL (0.60-3.4); LYMPHOCYTES % (AUTO) 5.6 (10.0-50.0); MEAN CORPUSCULAR HEMOGLOBIN 30.6 pg (27.0-31.0); MEAN CORPUSCULAR HGB CONC 30.8 (31.8-35.4); MEAN CORPUSCULAR VOLUME 99.5 fl (81.0-99.0); MONOCYTES # (AUTO) 1.1 K/uL (0.4-2.0); MONOCYTES % (AUTO) 5.2 (0-10); NEUTROPHILS # (AUTO) 18.7 K/ul (2.0-6.9); NEUTROPHILS % (AUTO) 88.2 % (42.2-75.2); PLATELET COUNT 271 10^3/uL (140-440); RDW COEFFICIENT OF VARIATION 13.3 % (11.6-14.8); RED BLOOD COUNT 4.15 10^6/ul (4.20-5.40); WHITE BLOOD COUNT 21.25 K/ul (4.6-10.2)
[2022-06-04 04:53] LABS: ALANINE AMINOTRANSFERASE 25.3 U/L (0-35); ALBUMIN 4.22 g/dL (3.5-5.0); ALKALINE PHOSPHATASE 69.3 U/L (53-141); BILIRUBIN,TOTAL 0.26 mg/dL (0.2-1.3); BLOOD UREA NITROGEN 18.7 mg/dL (7-17); CALCIUM 9.92 mg/dL (8.4-10.2); CHLORIDE 104.4 mmol/L (98-107); CREATININE 0.6 mg/dL (0.60-1.30); GLUCOSE 124.8 mg/dL (74-106); POTASSIUM 4.21 mmol/L (3.5-5.1); SODIUM 142.6 mmol/L (134.5-145); TOTAL PROTEIN 7.16 g/dL (6.3-8.2)
[2022-06-04] MEDS: PROTONIX PO SCH (05:33)
[2022-06-04] MEDS: SOLU-MEDROL 125 MG IVP SCH ×3 (05:33→20:13)
[2022-06-04] MEDS: SYNTHROID PO SCH (05:33)
[2022-06-04] MEDS: COLACE PO SCH (08:13)
[2022-06-04] MEDS: VITAMIN D PO SCH (08:13)
[2022-06-04] MEDS: MULTIVITAMIN TABLET PO SCH (08:13)
[2022-06-04] MEDS: LOPRESSOR PO SCH ×2 (08:14→20:14)
[2022-06-04] MEDS: AVAPRO PO SCH (08:14)
[2022-06-04] MEDS: TESSALON PERLES PO SCH ×3 (08:14→20:14)
[2022-06-04] MEDS: MUCINEX PO SCH ×2 (08:14→20:14)
[2022-06-04] MEDS: SYMBICORT 80-4.5 MCG INHALER IH SCH ×2 (08:15→20:14)
[2022-06-04] MEDS: ROCEPHIN 1 GM/50 ML D5W 1 GM/50 ML BAG IV SCH (08:15)
[2022-06-04] MEDS: POTASSIUM GLUCONATE 99 MG PO SCH ×2 (08:41→16:39)
--- NOTE | 2022-06-04 08:53 | PCM.PROG ---
Date Seen by Provider: 06/04/22 Time Seen by Provider: 08:51 Subjective: Blank has complaints of constipation and nursing staff is aware -=--still with sig wheezing Objective: Vitals: T=98.0 F, P=80, R=20, UN=976/65, SPO2=92 HEENT: [] Neck: [supple] Lungs: exp wheezes[] CVS: [rrr] Abdomen: [soft nt bs present] Extremities: [] Neurological: [no deformity] Skin: [] Lab/Tests/Diagnostic Imaging: [reviewed] (1) Acute exacerbation of chronic obstructive pulmonary disease: Status: Acute Code(s): J44.1 - Chronic obstructive pulmonary disease with (acute) exacerbation SNOMED Code(s): 026177917 (2) Viral upper respiratory tract infection with cough: Status: Acute Code(s): J06.9 - Acute upper respiratory infection, unspecified SNOMED Code(s): 227707229 Plan: will add miralax ---dulcolax---steroids and antbx continued for now
[2022-06-04] MEDS ORDERED: DULCOLAX PO STA (08:54)
[2022-06-04] MEDS: LOVENOX SUBCUT SCH (09:13)
[2022-06-04] MEDS: MIRALAX PO SCH ×2 (09:13→20:20)
[2022-06-04] MEDS ORDERED: TUSSIONEX PO ONE (19:35)
[2022-06-04] MEDS: NEURONTIN PO SCH (20:13)
[2022-06-05 04:34] LABS: BASOPHILS % (AUTO) 0.1 % (0.0-3.0); HEMATOCRIT 38.5 % (37.0-47.0); HEMOGLOBIN 12.2 g/dl (12.0-16.0); IMMATURE GRANULOCYTE # (AUTO) 0.2 (0.0-1.0); IMMATURE GRANULOCYTE % (AUTO) 1.1 % (0.0-5.0); LYMPHOCYTES # (AUTO) 1.5 K/uL (0.60-3.4); LYMPHOCYTES % (AUTO) 10.1 (10.0-50.0); MEAN CORPUSCULAR HEMOGLOBIN 31.1 pg (27.0-31.0); MEAN CORPUSCULAR HGB CONC 31.7 (31.8-35.4); MEAN CORPUSCULAR VOLUME 98.2 fl (81.0-99.0); MONOCYTES # (AUTO) 0.9 K/uL (0.4-2.0); MONOCYTES % (AUTO) 5.8 (0-10); NEUTROPHILS # (AUTO) 12.1 K/ul (2.0-6.9); NEUTROPHILS % (AUTO) 82.9 % (42.2-75.2); PLATELET COUNT 246 10^3/uL (140-440); RDW COEFFICIENT OF VARIATION 13.2 % (11.6-14.8); RED BLOOD COUNT 3.92 10^6/ul (4.20-5.40); WHITE BLOOD COUNT 14.57 K/ul (4.6-10.2)
[2022-06-05] MEDS: DUONEB NEB SCH ×4 (04:40→23:25)
[2022-06-05 04:45] LABS: ALANINE AMINOTRANSFERASE 18.6 U/L (0-35); ALBUMIN 3.78 g/dL (3.5-5.0); ALKALINE PHOSPHATASE 65.8 U/L (53-141); ASPARTATE AMINO TRANSFERASE 28.4 U/L (14-36); BILIRUBIN,TOTAL 0.27 mg/dL (0.2-1.3); BLOOD UREA NITROGEN 16.8 mg/dL (7-17); CALCIUM 9.64 mg/dL (8.4-10.2); CARBON DIOXIDE 28.9 mmol/L (22-30.0); CREATININE 0.53 mg/dL (0.60-1.30); GLUCOSE 112.4 mg/dL (74-106); POTASSIUM 4.09 mmol/L (3.5-5.1); TOTAL PROTEIN 6.57 g/dL (6.3-8.2)
[2022-06-05] MEDS: PROTONIX PO SCH (05:41)
[2022-06-05] MEDS: SOLU-MEDROL 125 MG IVP SCH ×3 (05:41→20:24)
[2022-06-05] MEDS: SYNTHROID PO SCH (05:41)
[2022-06-05] MEDS: MIRALAX PO SCH ×2 (08:24→21:29)
[2022-06-05] MEDS: COLACE PO SCH (08:24)
[2022-06-05] MEDS: VITAMIN D PO SCH (08:24)
[2022-06-05] MEDS: TESSALON PERLES PO SCH ×3 (08:24→20:23)
[2022-06-05] MEDS: ROCEPHIN 1 GM/50 ML D5W 1 GM/50 ML BAG IV SCH (08:25)
[2022-06-05] MEDS: POTASSIUM GLUCONATE 99 MG PO SCH ×2 (08:25→16:00)
[2022-06-05] MEDS: MULTIVITAMIN TABLET PO SCH (08:25)
[2022-06-05] MEDS: MUCINEX PO SCH ×2 (08:25→20:23)
[2022-06-05] MEDS: LOVENOX SUBCUT SCH (08:25)
[2022-06-05] MEDS: AVAPRO PO SCH (08:25)
[2022-06-05] MEDS: LOPRESSOR PO SCH ×2 (08:25→20:23)
[2022-06-05] MEDS: SYMBICORT 80-4.5 MCG INHALER IH SCH ×2 (08:26→20:24)
--- NOTE | 2022-06-05 12:09 | PCM.PROG ---
Date Seen by Provider: 06/05/22 Time Seen by Provider: 12:06 Subjective: continued hoarse productive cough, no fever Objective: Vitals: T=97.3 F, P=89, R=20, BW=358/82, SPO2=91 HEENT: []conjunctiva clear Neck: []supple Lungs: [] +bilateral rhonchi CVS: []RRR Abdomen: []nondistended Extremities: []hillary Neurological: []alert and oriented Skin: []pink Lab/Tests/Diagnostic Imaging: [] wbc 14.1 (1) Acute exacerbation of chronic obstructive pulmonary disease: Status: Acute Code(s): J44.1 - Chronic obstructive pulmonary disease with (acute) exacerbation SNOMED Code(s): 881196806 (2) Viral upper respiratory tract infection with cough: Status: Acute Code(s): J06.9 - Acute upper respiratory infection, unspecified SNOMED Code(s): 702965512 Plan: start zithromax, continue rocephin, duo nebs 2.5liters O2 and solumedrol am labs and cxr care to Dr Brown at 19:00
[2022-06-05] MEDS: ZITHROMAX PO SCH (12:22)
[2022-06-05] MEDS: NEURONTIN PO SCH (20:23)
[2022-06-06] MEDS: DUONEB NEB SCH ×4 (04:48→23:25)
[2022-06-06 05:26] LABS: BASOPHILS % (AUTO) 0.2 % (0.0-3.0); HEMATOCRIT 41.9 % (37.0-47.0); HEMOGLOBIN 13.4 g/dl (12.0-16.0); IMMATURE GRANULOCYTE # (AUTO) 0.2 (0.0-1.0); IMMATURE GRANULOCYTE % (AUTO) 1.8 % (0.0-5.0); LYMPHOCYTES # (AUTO) 1.6 K/uL (0.60-3.4); LYMPHOCYTES % (AUTO) 12.8 (10.0-50.0); MEAN CORPUSCULAR HEMOGLOBIN 31.6 pg (27.0-31.0); MEAN CORPUSCULAR VOLUME 98.8 fl (81.0-99.0); MONOCYTES # (AUTO) 0.7 K/uL (0.4-2.0); MONOCYTES % (AUTO) 5.8 (0-10); NEUTROPHILS # (AUTO) 9.7 K/ul (2.0-6.9); NEUTROPHILS % (AUTO) 79.4 % (42.2-75.2); PLATELET COUNT 272 10^3/uL (140-440); RED BLOOD COUNT 4.24 10^6/ul (4.20-5.40); WHITE BLOOD COUNT 12.14 K/ul (4.6-10.2)
[2022-06-06 05:37] LABS: ALANINE AMINOTRANSFERASE 21.1 U/L (0-35); ALBUMIN 4.25 g/dL (3.5-5.0); ALKALINE PHOSPHATASE 67.4 U/L (53-141); ASPARTATE AMINO TRANSFERASE 30.8 U/L (14-36); BILIRUBIN,TOTAL 0.36 mg/dL (0.2-1.3); BLOOD UREA NITROGEN 20.6 mg/dL (7-17); CALCIUM 9.91 mg/dL (8.4-10.2); CARBON DIOXIDE 34.3 mmol/L (22-30.0); CHLORIDE 102.8 mmol/L (98-107); CREATININE 0.64 mg/dL (0.60-1.30); GLUCOSE 110.8 mg/dL (74-106); POTASSIUM 4.2 mmol/L (3.5-5.1); SODIUM 141.6 mmol/L (134.5-145); TOTAL PROTEIN 7.31 g/dL (6.3-8.2)
[2022-06-06] MEDS: PROTONIX PO SCH (05:39)
[2022-06-06] MEDS: SOLU-MEDROL 125 MG IVP SCH ×3 (05:39→20:56)
[2022-06-06] MEDS: SYNTHROID PO SCH (05:39)
[2022-06-06] MEDS: VITAMIN D PO SCH (08:15)
[2022-06-06] MEDS: COLACE PO SCH (08:16)
[2022-06-06] MEDS: LOPRESSOR PO SCH ×2 (08:16→20:30)
[2022-06-06] MEDS: AVAPRO PO SCH (08:16)
[2022-06-06] MEDS: TESSALON PERLES PO SCH ×3 (08:16→20:30)
[2022-06-06] MEDS: MUCINEX PO SCH ×2 (08:16→20:29)
[2022-06-06] MEDS: MULTIVITAMIN TABLET PO SCH (08:16)
[2022-06-06] MEDS: ZITHROMAX PO SCH (08:16)
[2022-06-06] MEDS: SYMBICORT 80-4.5 MCG INHALER IH SCH ×2 (08:25→20:35)
[2022-06-06] MEDS: LOVENOX SUBCUT SCH (08:27)
[2022-06-06] MEDS: MIRALAX PO SCH ×2 (08:27→21:14)
[2022-06-06] MEDS: POTASSIUM GLUCONATE 99 MG PO SCH ×2 (08:29→17:25)
--- NOTE | 2022-06-06 09:49 | DI ---
EXAM: Chest two-view HISTORY: Cough COMPARISON: June 02 2022 FINDINGS: Linear opacity in the right lung is noted. Most likely this is fluid in the minor fissure . Hyperinflation and flattening diaphragms noted. Cardiac silhouette is normal. IMPRESSION: loculated fluid in the minor fissure. 2. Chronic obstructive pulmonary disease
[2022-06-06] MEDS: ROCEPHIN 1 GM/50 ML D5W 1 GM/50 ML BAG IV SCH (09:56)
--- NOTE | 2022-06-06 10:27 | PCM.PROG ---
Date Seen by Provider: 06/06/22 Time Seen by Provider: 10:23 Subjective: breathing better, less rhonchi, noted blood tinged sputum earlier, pt denies hx of blood clots Objective: Vitals: T=97.6 F, P=65, R=12, EE=983/76, SPO2=94 HEENT: []conjunctiva clear Neck: []supple Lungs: [] wheezing CVS: [] Abdomen: []nondistended Extremities: []hillary Neurological: []alert and oriented Skin: []pink Lab/Tests/Diagnostic Imaging: [] cxr shows copd w/o organized infil, Hb 13.4, decreasing wbc to 12.1 (1) Acute exacerbation of chronic obstructive pulmonary disease: Status: Acute Code(s): J44.1 - Chronic obstructive pulmonary disease with (acute) exacerbation SNOMED Code(s): 361473569 (2) Viral upper respiratory tract infection with cough: Status: Acute Code(s): J06.9 - Acute upper respiratory infection, unspecified SNOMED Code(s): 386920029 Plan: check tomorrow am labs as prelude to discharge, stop lovenox, start hoisery, continue rocephin and zithromax and solumedrol and oxygen 2.[address] Ibarra at 19:00
[2022-06-06] MEDS: NEURONTIN PO SCH (20:29)
[2022-06-07] MEDS: DUONEB NEB SCH ×2 (04:55→11:11)
[2022-06-07] MEDS: SOLU-MEDROL 125 MG IVP SCH ×2 (05:42→12:04)
[2022-06-07] MEDS: PROTONIX PO SCH (05:50)
[2022-06-07] MEDS: SYNTHROID PO SCH (05:50)
[2022-06-07 05:54] LABS: BASOPHILS % (AUTO) 0.3 % (0.0-3.0); HEMATOCRIT 42.8 % (37.0-47.0); HEMOGLOBIN 13.4 g/dl (12.0-16.0); IMMATURE GRANULOCYTE # (AUTO) 0.2 (0.0-1.0); LYMPHOCYTES # (AUTO) 1.6 K/uL (0.60-3.4); LYMPHOCYTES % (AUTO) 14.5 (10.0-50.0); MEAN CORPUSCULAR HEMOGLOBIN 30.8 pg (27.0-31.0); MEAN CORPUSCULAR HGB CONC 31.3 (31.8-35.4); MEAN CORPUSCULAR VOLUME 98.4 fl (81.0-99.0); MONOCYTES # (AUTO) 0.7 K/uL (0.4-2.0); MONOCYTES % (AUTO) 6.4 (0-10); NEUTROPHILS # (AUTO) 8.4 K/ul (2.0-6.9); NEUTROPHILS % (AUTO) 76.8 % (42.2-75.2); PLATELET COUNT 280 10^3/uL (140-440); RED BLOOD COUNT 4.35 10^6/ul (4.20-5.40); WHITE BLOOD COUNT 10.96 K/ul (4.6-10.2)
[2022-06-07 06:06] LABS: ALANINE AMINOTRANSFERASE 25.3 U/L (0-35); ALBUMIN 4.22 g/dL (3.5-5.0); ASPARTATE AMINO TRANSFERASE 28.8 U/L (14-36); BILIRUBIN,TOTAL 0.34 mg/dL (0.2-1.3); CALCIUM 9.72 mg/dL (8.4-10.2); CARBON DIOXIDE 32.9 mmol/L (22-30.0); CHLORIDE 102.5 mmol/L (98-107); CREATININE 0.61 mg/dL (0.60-1.30); GLUCOSE 111.1 mg/dL (74-106); POTASSIUM 3.95 mmol/L (3.5-5.1); SODIUM 141.2 mmol/L (134.5-145); TOTAL PROTEIN 7.15 g/dL (6.3-8.2)
[2022-06-07 07:11] VITALS: BP 142/81; TEMP 97.5
[2022-06-07] MEDS: AVAPRO PO SCH (09:22)
[2022-06-07] MEDS: TESSALON PERLES PO SCH (09:22)
[2022-06-07] MEDS: MULTIVITAMIN TABLET PO SCH (09:23)
[2022-06-07] MEDS: VITAMIN D PO SCH (09:23)
[2022-06-07] MEDS: LOPRESSOR PO SCH (09:23)
[2022-06-07] MEDS: ZITHROMAX PO SCH (09:23)
[2022-06-07] MEDS: MUCINEX PO SCH (09:23)
[2022-06-07] MEDS: COLACE PO SCH (09:23)
[2022-06-07] MEDS: SYMBICORT 80-4.5 MCG INHALER IH SCH (09:24)
[2022-06-07] MEDS: POTASSIUM GLUCONATE 99 MG PO SCH (09:24)
[2022-06-07] MEDS: MIRALAX PO SCH (09:27)
--- NOTE | 2022-06-07 11:33 | PCM.DC ---
Final Diagnosis: copd exacerbation Physical Exam Appearance: Well-appearing Ill-appearing: None Pain Distress: None Eyes: Conjunctiva clear ENT: Oropharynx normal Neck: Supple Respiratory: Airway patent, Breath sounds clear and Breath sounds equal Cardiovascular: RRR GI/: Nontender Musculoskeletal: ROM intact Skin: Warm and Dry Neurological: Alert and Oriented Psychiatric: Affect appropriate (1) Acute exacerbation of chronic obstructive pulmonary disease: Status: Acute Code(s): J44.1 - Chronic obstructive pulmonary disease with (acute) exacerbation SNOMED Code(s): 637501120 (2) Viral upper respiratory tract infection with cough: Status: Acute Code(s): J06.9 - Acute upper respiratory infection, unspecified SNOMED Code(s): 436829138 Reason for Hospitalization: dyspnea Prognosis/Condition at Discharge: good Medications at Discharge: home meds except norco, medrol dose pk, zpak, albuterol for nebulizer, pt states she has home oxygen Lab/Diagnostics: wbc 10 Education Provided to Patient and Family: see Dr Kerns on Monday, return if worse Follow-ups: Monday w/ Dr Kerns Discharge Disposition: Home Hospital Course: good, 40 minutes spent on discharge prep Plan: continue previous medical regimen
== END 2022-06-07 12:20 | disposition home or self-care (01) | DRG 192 ==
LOC: ED 07:51 → MEDSURG A 10:21
PROVIDERS: ADMIT Surgery; ATTEND Emergency Medicine Emergency Medical Services
DX: Z79.899 Other long term (current) drug therapy; J44.1 Chronic obstructive pulmonary disease with (acute) exacerbation; Z99.81 Dependence on supplemental oxygen; Z51.81 Encounter for therapeutic drug level monitoring; J06.9 Acute upper respiratory infection, unspecified; Z20.822 Contact with and (suspected) exposure to COVID-19